=== PATIENT | female | born 1965 | race American Indian/Alaskan Native ===

== ENCOUNTER 2017-04-10 15:58 | Emergency (ER) | payer BC, MEDICAID ==
[2017-04-10 15:59] VITALS: BMI 35.5
--- NOTE | 2017-04-10 16:23 | C.PDOC ---
History Of Present Illness 51F c/o low abd pain rad to low back constant since this am. no exac or reliev fx. assoc nausea. normal stools. no fever. had hernia repair w "mesh" 3 weeks ago at [facility]. doing fine since until today. Time Seen by Provider: 04/10/17 16:22 Chief Complaint (Nursing): Abdominal Pain Past Medical History Vital Signs: Last Vital Signs Temp 98.1 F 04/10/17 22:43 Pulse 77 04/10/17 22:43 Resp 20 04/10/17 22:43 BP 117/72 04/10/17 22:43 Pulse Ox 100 04/13/17 07:15 - Medical History PMH: Anemia, Anxiety, Arthritis (KNEES), Colonic Polyps (2015), HTN, Hyperthyroidism, TIA (1997; 2002) Denies: Chronic Kidney Disease Surgical History: Endoscopy Family History: States: Other Other Family History: nc - Social History Hx Tobacco Use: Yes Hx Alcohol Use: No Hx Substance Use: No - Immunization History Hx Tetanus Toxoid Vaccination: No Hx Influenza Vaccination: No Hx Pneumococcal Vaccination: No Review Of Systems Except As Marked, All Systems Reviewed And Found Negative. Constitutional: Negative for: Fever, Chills Cardiovascular: Negative for: Chest Pain Respiratory: Negative for: Cough, Shortness of Breath Gastrointestinal: Positive for: Nausea, Abdominal Pain, Diarrhea (2 da). Negative for: Vomiting, Hematochezia Genitourinary: Negative for: Dysuria Neurological: Negative for: Weakness, Numbness Physical Exam - Physical Exam Appears: Non-toxic Skin: Warm, Dry Eye(s): bilateral: PERRL Nose: No Epistaxis Oral Mucosa: Moist Cardiovascular: Rhythm Regular Respiratory: No Decreased Breath Sounds, No Accessory Muscle Use, No Rales, No Rhonchi, No Wheezing Gastrointestinal/Abdominal: Soft, Tenderness (low mainly RLQ), No Distention, Guarding, No Rebound Extremity: No Swelling Neurological/Psych: Oriented x3, Other (no focal deficits) ED Course And Treatment - Laboratory Results Result Diagrams: 04/10/17 16:58 04/10/17 16:58 O2 Sat by Pulse Oximetry: 100 - CT Scan/US CT abd/pel Other Rad Studies (CT/US): Read By Radiologist, Radiology Report Reviewed CT/US Interpretation: EXAM: CT Abdomen and Pelvis With Intravenous Contrast. CLINICAL HISTORY: 51 years old, female; Pain; Abdominal pain; Flank; Lower; Prior surgery; Surgery date: <1 month;. Surgery type: Hernia repair; Additional info: Abdominal pain S/P hernia repair. TECHNIQUE: Axial computed tomography images of the abdomen and pelvis with intravenous contrast. This CT. exam was performed using one or more of the following dose reduction techniques: automated. exposure control, adjustment of the mA and/or kV according to patient size, and/or use of iterative. reconstruction technique. Coronal and sagittal reformatted images were created and reviewed. CONTRAST: 100 mL of visipaque 320 administered intravenously. EXAM DATE/TIME: Exam ordered 04/10/2017 5:25 PM. COMPARISON: No relevant prior studies available. FINDINGS: Lower thorax: There is thickening noted of the left major fissure near the lung base. Discoid. atelectasis or scar is seen in the right middle lobe. Hazy groundglass densities noted in the. dependent portion of the posterior basal segment of the right lower lobe. Coarse reticular densities in the posterior basal segment of the left lower lobe suggest discoid atelectasis or scar. There is a. moderate size sliding hiatal hernia. ABDOMEN: Liver: Unremarkable. No mass. Gallbladder and bile ducts: Unremarkable. No calcified stones. No ductal dilation. Pancreas: Unremarkable. No mass. No ductal dilation. Spleen: Unremarkable. No splenomegaly. Adrenals: There is a left adrenal mass measuring 2 cm with a density measurement of 22H. Kidneys and ureters: There is a mass in the lower pole of the left kidney with a maximum diameter 1. cm and a density measurement of 6H No hydronephrosis. Stomach and bowel: There are generalized colonic diverticula. No obstruction. No mucosal. thickening. Appendix: No findings to suggest acute appendicitis. PELVIS: Bladder: Unremarkable. No mass. Reproductive: Unremarkable as visualized. ABDOMEN and PELVIS: Intraperitoneal space: Ascites is noted in the hernia sac. There is intra-abdominal ascites. surrounding the liver and the spleen. Ascites is noted within the mesentery and the pelvis. The. pelvic ascites fluid density is 32 H. A fluid fluid level is noted in the left paracolic gutter with. hyperdense fluid layering dependently. No free air. Bones/joints : No acute fracture. No dislocation. Soft tissues: There is a small umbilical hernia containing fat. There is a healed midline abdominal. incision. Hazy inflammatory changes noted within the mesenteric fat anteriorly to the right of the umbilicus. There is adjacent soft tissue thickening noted of the anterior peritoneal surface. Within the. area of soft tissue thickening, there is a tiny hyperdense focus. Vasculature: Unremarkable. No abdominal aortic aneurysm. Lymph nodes: Unremarkable. No enlarged lymph nodes. IMPRESSION: 1. Hyperdense ascites could represent hemoperitoneum. 2. Hazy inflammatory change noted within the mesenteric fat to the right of the umbilicus with soft. tissue thickening noted along the adjacent anterior peritoneal surface. This could be postsurgical in. nature. A tiny hyperdense focus within the area of soft tissue thickening may be related to the mesh. used to repair the hernia. A tiny area of extravasation from the inferior epigastric artery is another. possibility. 3. Generalized colonic diverticula. 4. Moderate size sliding hiatal hernia. 5. Bibasal discoid atelectasis or scar. 6. Left renal cyst. 7. Left adrenal mass. Recommend follow-up CT or MR in 12 months. Alternatively, if there is a. history of malignancy, consider further evaluation with PET, unenhanced CT or MR. Medical Decision Making Medical Decision Making: ecg- nsr 77, nonspec t wave abn, appears similar to prior 11/17/15 1720 Hb 6.9. Bedside US shows abd free fluid 1814 paged surgery at [facility] for transfer [address] Stewart 1847 Dr Aguilera called back- rec transfer to [facility] 1929 pt resting comfortably, no distress, VSS. updated on plan 1946 call back from [facility] surgery resident Dr Baldwin. will disc w attending and call back [address] Sánchez at [facility] who accepts pt for transfer The surgical service at [facility] was paged multiple times without response from 1814 until 1946. Disposition - Disposition Disposition: Trans to Other Acute Care Hosp Disposition Time: 23:05 Condition: STABLE - Clinical Impression Clinical Impression: Hemoperitoneum
[2017-04-10] MEDS ORDERED: Sodium Chloride 0.9% 1,000 ML IV ONE (16:37)
[2017-04-10] MEDS ORDERED: Morphine 4 MG/ML VIAL ONE ×2 (16:57→17:46)
[2017-04-10] MEDS ORDERED: Sodium Chloride 0.9% 1,000 ML ONE (16:57)
[2017-04-10 17:10] LABS: BASO # 0.1 K/uL (0.0-0.2); BASO % 0.8 % (0.0-2.0); EOS # 0.2 K/uL (0.0-0.7); EOS % 2.1 % (0.0-4.0); HEMOGLOBIN 6.9 g/dL (11.0-16.0); MEAN CELL VOLUME 70.1 fL (81.0-99.0); MEAN CORPUSCULAR HEMOGLOBIN 21.5 pg (27.0-31.0); MEAN CORPUSCULAR HGB CONC 30.6 g/dL (33.0-37.0); MEAN PLATELET VOLUME 6.6 fL (7.2-11.7); MONO # 0.3 K/uL (0.0-0.8); NEUT # 6.9 K/uL (1.8-7.0); NEUT % 81.1 % (50.0-75.0); RBC 3.22 Mil/uL (3.80-5.20); RED CELL DISTRIBUTION WIDTH 19.1 % (11.5-14.5); WHITE BLOOD COUNT 8.6 K/uL (4.8-10.8)
[2017-04-10 17:11] LABS: ALBUMIN 3.6 g/dL (3.5-5.0)
[2017-04-10 17:14] LABS: ALB/GLOB RATIO 1.3 (1.0-2.1)
[2017-04-10 17:15] LABS: CALCIUM 8.2 mg/dl (8.6-10.4)
[2017-04-10] MEDS ORDERED: Iodixanol 320 MG/ML 100 ML BOTTLE IV ONE (17:35)
[2017-04-10] MEDS ORDERED: DiphenhydrAMINE 50 mg/ml Inj IVP STA (17:40)
[2017-04-10] MEDS ORDERED: DiphenhydrAMINE 50 mg/ml Inj ONE (17:45)
[2017-04-10 17:59] LABS: INR 1.1; PROTHROMBIN TIME 12.5 SECONDS (9.7-12.2)
[2017-04-10 18:22] VITALS: O2SAT 100
--- NOTE | 2017-04-10 18:55 | CT ---
EXAM: CT Abdomen and Pelvis With Intravenous Contrast CLINICAL HISTORY: 51 years old, female; Pain; Abdominal pain; Flank; Lower; Prior surgery; Surgery date: <1 month; Surgery type: Hernia repair; Additional info: Abdominal pain S/P hernia repair TECHNIQUE: Axial computed tomography images of the abdomen and pelvis with intravenous contrast. This CT exam was performed using one or more of the following dose reduction techniques: automated exposure control, adjustment of the mA and/or kV according to patient size, and/or use of iterative reconstruction technique. Coronal and sagittal reformatted images were created and reviewed. CONTRAST: 100 mL of visipaque 320 administered intravenously. EXAM DATE/TIME: Exam ordered 04/10/2017 5:25 PM COMPARISON: No relevant prior studies available. FINDINGS: Lower thorax: There is thickening noted of the left major fissure near the lung base. Discoid atelectasis or scar is seen in the right middle lobe. Hazy groundglass densities noted in the dependent portion of the posterior basal segment of the right lower lobe. Coarse reticular densities in the posterior basal segment of the left lower lobe suggest discoid atelectasis or scar. There is a moderate size sliding hiatal hernia. ABDOMEN: Liver: Unremarkable. No mass. Gallbladder and bile ducts: Unremarkable. No calcified stones. No ductal dilation. Pancreas: Unremarkable. No mass. No ductal dilation. Spleen: Unremarkable. No splenomegaly. Adrenals: There is a left adrenal mass measuring 2 cm with a density measurement of 22H. Kidneys and ureters: There is a mass in the lower pole of the left kidney with a maximum diameter 1 cm and a density measurement of 6H No hydronephrosis. Stomach and bowel: There are generalized colonic diverticula. No obstruction. No mucosal thickening. Appendix: No findings to suggest acute appendicitis. PELVIS: Bladder: Unremarkable. No mass. Reproductive: Unremarkable as visualized. ABDOMEN and PELVIS: Intraperitoneal space: Ascites is noted in the hernia sac. There is intra-abdominal ascites surrounding the liver and the spleen. Ascites is noted within the mesentery and the pelvis. The pelvic ascites fluid density is 32 H. A fluid fluid level is noted in the left paracolic gutter with hyperdense fluid layering dependently. No free air. Bones/joints: No acute fracture. No dislocation. Soft tissues: There is a small umbilical hernia containing fat. There is a healed midline abdominal incision. Hazy inflammatory changes noted within the mesenteric fat anteriorly to the right of the umbilicus. There is adjacent soft tissue thickening noted of the anterior peritoneal surface. Within the area of soft tissue thickening, there is a tiny hyperdense focus Vasculature: Unremarkable. No abdominal aortic aneurysm. Lymph nodes: Unremarkable. No enlarged lymph nodes. IMPRESSION: 1. Hyperdense ascites could represent hemoperitoneum. 2. Hazy inflammatory change noted within the mesenteric fat to the right of the umbilicus with soft tissue thickening noted along the adjacent anterior peritoneal surface. This could be postsurgical in nature. A tiny hyperdense focus within the area of soft tissue thickening may be related to the mesh used to repair the hernia. A tiny area of extravasation from the inferior epigastric artery is another possibility. 3. Generalized colonic diverticula. 4. Moderate size sliding hiatal hernia. 5. Bibasal discoid atelectasis or scar. 6. Left renal cyst 7. Left adrenal mass. Recommend follow-up CT or MR in 12 months. Alternatively, if there is a history of malignancy, consider further evaluation with PET, unenhanced CT or MR.
[2017-04-10] MEDS ORDERED: Sodium Chloride 0.9% 1,000 ML IV SCH (20:30)
[2017-04-10 22:15] LABS: SQUAMOUS EPITHIAL 9 /hpf (0-5); URINE BACTERIA RARE (<OCC); URINE BILIRUBIN NEGATIVE (NEGATIVE); URINE BLOOD NEGATIVE (NEGATIVE); URINE CLARITY Clear (Clear); URINE COLOR Yellow (YELLOW); URINE GLUCOSE (UA) NORMAL (Normal); URINE LEUKOCYTE ESTERASE NEG Leu/uL (Negative); URINE NITRATE NEGATIVE (NEGATIVE); URINE PROTEIN 1+ mg/dL (NEGATIVE); URINE UROBILINOGEN NORMAL mg/dL (0.2-1.0)
[2017-04-10 22:16] LABS: HCG,QUALITATIVE URINE NEGATIVE (NEGATIVE)
[2017-04-10 22:44] VITALS: BP 117/72; PULSE 77; RESP 20; TEMP 98.1
--- NOTE | 2017-04-11 21:28 | CARD ---
APPROVED REPORT EKG Measurement Heart [id number] <Conclusion> Normal sinus rhythm T wave abnormality, consider lateral ischemia Abnormal ECG
== END 2017-04-10 23:05 | disposition short-term general hospital (02) ==
LOC: C.ER 15:58
DX: K66.1 Hemoperitoneum (principal)
CPT/HCPCS: 36430; 74177; 80053; 81001; 83690; 84703; 85025; 85610; 85730; 86850; 86900; 86920; 93005; 96361; 96374; 96375; 96376; 99285; J1200; J2270; J2405; J2930; J7040; P9051; Q9967

== ENCOUNTER 2017-11-29 08:11 | Day surgery (SDC) | payer MEDICAID ==
[2017-11-29 09:21] VITALS: BMI 38.0
[2017-11-29] MEDS ORDERED: Propofol 10 mg/ml Inj (20 ML) ONE (11:15)
[2017-11-29] MEDS ORDERED: Lidocaine Hydrochloride 5 ML INJ ONE (11:15)
[2017-11-29] MEDS ORDERED: Lactated Ringer's 1,000 ML IV ONE ×2 (11:20)
[2017-11-29 11:31] VITALS: O2SAT 100
[2017-11-29 13:32] VITALS: BP 166/88; PULSE 72; RESP 18
[2017-11-29 13:35] VITALS: TEMP 97
== END 2017-11-29 13:25 | disposition home or self-care (01) ==
LOC: C.ENDO 08:11
PROVIDERS: ATTEND Internal Medicine Gastroenterology
DX: K25.9 Gastric ulcer, unspecified as acute or chronic, without hemorrhage or perforation (principal); K92.1 Melena; K29.70 Gastritis, unspecified, without bleeding; I10 Essential (primary) hypertension
CPT/HCPCS: 43239; 88305; J2704; J7120

== ENCOUNTER 2018-01-14 07:30 | Inpatient (IN) | payer MEDICAID ==
[2018-01-03 12:56] VITALS: BMI 38.7
[2018-01-21] MEDS ORDERED: Bupivacaine HCl 0.25% PF (30 ml) Inj ONE ×2 (07:12→07:42)
[2018-01-21] MEDS ORDERED: Lidocaine/Epinephrine 1% 1:100000 10 ML IJ ONE (07:12)
[2018-01-21] MEDS ORDERED: ceFAZolin 1 gm in NS 0 GM/0 ML BAG IVPB ONE (07:13)
[2018-01-21] MEDS ORDERED: Clindamycin 600mg/50ml NS 600 MG/50 ML BAG IVPB ONE (07:25)
[2018-01-21] MEDS ORDERED: Propofol 10 mg/ml Inj (20 ML) ONE (07:40)
[2018-01-21] MEDS ORDERED: Midazolam 2 MG/2 ML VIAL ONE (07:40)
[2018-01-21] MEDS ORDERED: Succinylcholine Chloride 20 mg/ml Syr (5 ml) IV ONE (07:41)
[2018-01-21] MEDS ORDERED: Lidocaine Hydrochloride 5 ML INJ ONE (07:41)
[2018-01-21] MEDS ORDERED: Sodium Chloride 0.9% 20 ML IV ONE (07:42)
[2018-01-21] MEDS ORDERED: Rocuronium 10 mg/ml (5 ml) ONE (07:43)
[2018-01-21] MEDS ORDERED: ePHEDrine 50 mg/ml Inj ONE (08:16)
[2018-01-21] MEDS ORDERED: Neostigmine Methylsulfate 3mg/3ml Syringe IV ONE (10:05)
[2018-01-21] MEDS: Bupivacaine HCl 0.25% PF (30 ml) Inj ONE ×2 (10:24→10:25)
--- NOTE | 2018-01-21 13:05 | RAD ---
Chest x-ray single frontal view History: NG tube placement. Comparison: 01/03/2018 Findings: NG tube extending into the stomach. Small left pleural effusion with adjacent left basilar consolidative changes. Moderate venous congestion. Top normal heart size. Degenerative changes in the spine and shoulders. Deformity of the right proximal humerus. Impression: NG tube extending into the stomach. Small left pleural effusion with adjacent left basilar consolidative changes. Moderate venous congestion. Top normal heart size. Degenerative changes in the spine and shoulders. Deformity of the right proximal humerus.
--- NOTE | 2018-01-21 13:17 | PCM.SURG1 ---
Surgeon's Initial Post Op Note - Surgeon's Notes Surgeon: Dr. Garcia, Dr. Hicks Dust Handler: HAYLEE Ahmadi; Nicolasa Ferguson, PGY2 Type of Anesthesia: General Endo Pre-Operative Diagnosis: hiatal hernia, GERD Operative Findings: extensive intraperitoneal adhesions, hiatal hernia, see full operative report Post-Operative Diagnosis: same Operation Performed: Robotic assisted laparoscopic extensive lysis of adhesions , hiatal hernia repair with mesh, chana fundoplication Specimen/Specimens Removed: hernia sac Estimated Blood Loss: EBL {In ML}: 150 Date of Surgery/Procedure: 01/21/18 Time of Surgery/Procedure: 08:00
[2018-01-21] MEDS: HYDROmorphone 0.5 mg/0.5 ml ISec IVP PRN ×3 (13:59→14:36)
[2018-01-21] MEDS: metroNIDAZOLE IV 500 mg/100 ml 500 MG/100 ML BAG IVPB SCH ×2 (14:05→22:20)
[2018-01-21] MEDS: Ciprofloxacin 400mg/200ml D5W 400 MG/200 ML BAG IVPB SCH (14:36)
--- NOTE | 2018-01-21 19:22 | CP.PCM.HP ---
Past Patient History - Past Medical History & Family History Past Medical History?: Yes - Past Social History Smoking Status: Light Smoker < 10 Cigarettes Daily - CARDIAC Hx Cardiac Disorders: Yes Hx Hypertension: Yes - PULMONARY Hx Respiratory Disorders: Yes Hx Chronic Obstructive Pulmonary Disease (COPD): Yes Hx Sleep Apnea: Yes (NO CPAP OF NOW) Other/Comment: IN PROCESS OF EVALUATION FOR CPAP, SLEEPS THROUGH OUT DAY - NEUROLOGICAL Hx Neurological Disorder: Yes HX Cerebrovascular Accident: No Hx Dizziness: Yes (SOMETIMES) Hx Transient Ischemic Attacks (TIA): Yes (1997; 2002) - HEENT Hx HEENT Problems: Yes Hx Cataracts: Yes Other/Comment: thyroid nodule - ENDOCRINE/METABOLIC Hx Endocrine Disorders: Yes Hx Hyperthyroidism: Yes Hx Hypothyroidism: Yes (S/P THYROIDECTOMY) Other/Comment: HX: THYROID CANCER - HEMATOLOGICAL/ONCOLOGICAL Hx Blood Disorders: Yes Hx Anemia: Yes Hx Blood Transfusions: Yes Hx Blood Transfusion Reaction: No Hx Cancer: Yes (THYROID) - MUSCULOSKELETAL/RHEUMATOLOGICAL Hx Musculoskeletal Disorders: Yes Hx Arthritis: Yes (KNEES) Hx Osteoarthritis: Yes Other/Comment: HX: UMBILICAL HERNIA - GASTROINTESTINAL Hx Gastrointestinal Disorders: Yes Hx Gastroesophageal Reflux: Yes Hx Hemorrhoids: Yes Hx Ulcer: Yes - GENITOURINARY/GYNECOLOGICAL Hx Genitourinary Disorders: Yes Other/Comment: HX: UTERINE FIBROID - PSYCHIATRIC Hx Psychophysiologic Disorder: Yes Hx Anxiety: Yes Hx Panic Symptoms: Yes (PALPITATIONS, SWEATY, SOB, DIZZINESS) - SURGICAL HISTORY Hx Surgeries: Yes Hx Section: Yes Hx Herniorrhaphy: Yes (umbilical hernia ,MESH) Hx Hysterectomy: Yes (8 YRS) Hx Thyroidectomy: Yes Hx Tubal Ligation: Yes - ANESTHESIA Hx Anesthesia: Yes Hx Anesthesia Reactions: No Hx Malignant Hyperthermia: No Meds Allergies/Adverse Reactions: Allergies Allergy/AdvReac Type Severity Reaction Status Date / Time Penicillins Allergy Intermediate RASH Verified 01/03/18 12:09 Physical Exam - Constitutional Appears: Well - Head Exam Head Exam: ATRAUMATIC, NORMAL INSPECTION, NORMOCEPHALIC - Eye Exam Eye Exam: EOMI, Normal appearance, PERRL Pupil Exam: NORMAL ACCOMODATION, PERRL - ENT Exam ENT Exam: Mucous Membranes Moist, Normal Exam - Neck Exam Neck exam: Positive for: Normal Inspection - Respiratory Exam Respiratory Exam: Decreased Breath Sounds - Cardiovascular Exam Cardiovascular Exam: REGULAR RHYTHM, +S1, +S2 - GI/Abdominal Exam GI & Abdominal Exam: Diminished Bowel Sounds, Soft - Rectal Exam Rectal Exam: Deferred Results - Vital Signs Recent Vital Signs: Last Vital Signs Temp 98 F 01/21/18 17:00 Pulse 80 01/21/18 17:00 Resp 21 01/21/18 17:00 BP 147/98 H 01/21/18 17:00 Pulse Ox 99 01/21/18 17:00 - Labs Labs: Laboratory Results - last 24 hr 01/21/18 01/21/18 06:54 12:56 POC Glucose (mg/dL) 170 H Blood Type O POSITIVE Antibody Screen Negative
[2018-01-21] MEDS: Lactated Ringer's 1,000 ML IV SCH (21:17)
[2018-01-22] MEDS: Ciprofloxacin 400mg/200ml D5W 400 MG/200 ML BAG IVPB SCH ×2 (01:26→13:43)
[2018-01-22] MEDS: Lactated Ringer's 1,000 ML IV SCH ×2 (01:29→21:11)
--- NOTE | 2018-01-22 02:06 | OP ---
PROCEDURE DATE: 01/21/2018 PREOPERATIVE DIAGNOSES: 1. Paraesophageal hernia. 2. Upper gastrointestinal bleed with a hannah ulcer. 3. Status post previous hysterectomy and status post laparoscopic incisional hernia repair. 4. Possible extensive postoperative adhesions. POSTOPERATIVE DIAGNOSES: 1. Paraesophageal hernia. 2. Upper gastrointestinal bleed with a hannah ulcer. 3. Status post previous hysterectomy and status post laparoscopic incisional hernia repair. 4. Possible extensive postoperative adhesions. PROCEDURES: 1. Laparoscopic extensive lysis of adhesions. 2. Robotic hiatal hernia repair with the mesh. 3. Robotic diaphragmatic repair. 4. Robotic gastropexy. SURGEON: José Antonio Garcia MD. CO-SURGEON: Martín Hicks MD TRACK GRINDER: FREDI Frederick; and Nicolasa Ferguson, PGY-2 resident. ANESTHESIA: General endotracheal tube anesthesia. ESTIMATED BLOOD LOSS: Around 150 mL. DRAINS: None. PATHOLOGY: Hernial sac and was sent for the pathology. COMPLICATIONS: None. INTRAOPERATIVE FINDINGS: The patient had paraesophageal hernia with a thickened fundus of the stomach. DESCRIPTION OF PROCEDURE: On intraoperative steps, this is a 52-year-old female who was diagnosed with hiatal hernia, and the patient had paraesophageal hernia with hannah ulcer with upper GI bleed, and the patient was consented for the robotic hiatal hernia repair with a mesh with possible extensive lysis of adhesion, possible open. The patient was brought to the OR, placed supine on the operating table. After induction of anesthesia, the abdomen was prepped and draped in the usual sterile fashion. The Llamas catheter and NG tube was placed and abdomen was prepped and draped in the usual sterile fashion. The right upper quadrant incision was made. Peritoneal cavity was entered. Pneumo was created. Extensive lysis of adhesion was done laparoscopically and upper part of the abdomen was freed from the small bowel as well as omentum and colonic adhesion. After that, the 5.8 mm robotic camera was placed in the upper abdomen, and robot was brought in, camera arm as well as arm 1 and arm 2 was docked. Through the most lateral right side port, the robotic arm was used to retract liver up and the stomach was reduced back into the peritoneal cavity and intraperitoneal adhesion was lysed. This part of the operation was done by Dr. Kurt Resendiz and the esophagus was identified and the anterior as well as the posterior vagus nerve was identified. The dissection was carried down into the thorax to mobilize the esophagus and right and left sia of the diaphragm was also dissected. The first posterior repair was done with a 2-0 PDS continuous suture and the 56-Malay bougie was placed, and then the Strattice matrix was placed and the mesh was sutured with continuous suture after proper hiatal hernia repair as well as diaphragmatic repair. Now the short gastric vessel was mobilized and fundoplication was done. After completion of the fundoplication, the bougie was taken off and bougie was placed back in to see if any constriction at the fundoplication site, and there was no constriction and bougie was moving without any resistance. After fundoplication, the gastropexy was done. The fundus of the stomach was sutured to the diaphragm with multiple sutures, and after gastropexy, the suction irrigation of the left upper quadrant as well as right upper quadrant was done. The hemostasis was achieved and after proper hemostasis and after proper suction irrigation, all the port was taken out under vision. The Pneumo was deflated. All the port site was closed in 2 layers, subcu with a 2-0 Vicryl, skin with a 4-0 Monocryl, and dry sterile dressing was applied. The patient tolerated the procedure well. Count of instrument and gauze was correct. There were no apparent complications. José Antonio Garcia MD MTDHermilo
[2018-01-22] MEDS: Levothyroxine 100 mcg (0.1 mg) Inj IVP SCH (06:22)
[2018-01-22] MEDS: metroNIDAZOLE IV 500 mg/100 ml 500 MG/100 ML BAG IVPB SCH ×2 (06:27→13:48)
[2018-01-22 07:49] LABS: BASO % 0.4 % (0.0-2.0); EOS % 0.1 % (0.0-4.0); HEMOGLOBIN 8.9 g/dL (11.0-16.0); LYMPH # 0.4 K/uL (1.0-4.3); LYMPH % 5.5 % (20.0-40.0); MEAN CORPUSCULAR HEMOGLOBIN 22.5 pg (27.0-31.0); MEAN CORPUSCULAR HGB CONC 31.6 g/dL (33.0-37.0); MEAN PLATELET VOLUME 8.3 fL (7.2-11.7); MONO # 0.4 K/uL (0.0-0.8); MONO % 5.3 % (0.0-10.0); NEUT # 7.1 K/uL (1.8-7.0); NEUT % 88.7 % (50.0-75.0); RBC 3.95 Mil/uL (3.80-5.20); RED CELL DISTRIBUTION WIDTH 24.6 % (11.5-14.5)
[2018-01-22 07:55] LABS: PLATELET COUNT 195 K/uL (130-400)
[2018-01-22 08:12] LABS: ALB/GLOB RATIO 1.2 (1.0-2.1); ALBUMIN 3.5 g/dL (3.5-5.0); ALT/SGPT 976 U/L (9-52); BLOOD UREA NITROGEN 20 mg/dL (7-17); CALCIUM 7.7 mg/dl (8.6-10.4); GFR AFRICAN-AMERICAN > 60; GFR NON-AFRICAN AMERICAN 58
[2018-01-22] MEDS: Morphine 4 MG/ML VIAL IVP PRN ×3 (08:38→18:36)
[2018-01-22 08:44] LABS: AST/SGOT 902 U/L (14-36)
[2018-01-22 10:29] LABS: ANISOCYTOSIS MODERATE; BANDS 5 % (0-2); HYPOCHROMIC MODERATE; LYMPHOCYTE 6 % (20-40); MONOCYTE 5 % (0-10); NEUTROPHIL 84 % (50-75); PLATELET ESTIMATE NORMAL (NORMAL); TOTAL CELLS COUNTED 100
[2018-01-22] MEDS: Enalaprilat 2.5 MG/2 ML IV SCH ×2 (12:47→17:39)
[2018-01-22] MEDS: Albuterol-Ipratrop 3 mg / 0.5 (3 ml) UD INH SCH ×2 (13:27→20:43)
--- NOTE | 2018-01-22 17:07 | CP.PCM.HP ---
Past Patient History - Past Medical History & Family History Past Medical History?: Yes - Past Social History Smoking Status: Light Smoker < 10 Cigarettes Daily - CARDIAC Hx Cardiac Disorders: Yes Hx Hypertension: Yes - PULMONARY Hx Respiratory Disorders: Yes Hx Chronic Obstructive Pulmonary Disease (COPD): Yes Hx Sleep Apnea: Yes (NO CPAP OF NOW) Other/Comment: IN PROCESS OF EVALUATION FOR CPAP, SLEEPS THROUGH OUT DAY - NEUROLOGICAL Hx Neurological Disorder: Yes HX Cerebrovascular Accident: No Hx Dizziness: Yes (SOMETIMES) Hx Transient Ischemic Attacks (TIA): Yes (1997; 2002) - HEENT Hx HEENT Problems: Yes Hx Cataracts: Yes Other/Comment: thyroid nodule - RENAL Hx Chronic Kidney Disease: No - ENDOCRINE/METABOLIC Hx Endocrine Disorders: Yes Hx Hyperthyroidism: Yes Hx Hypothyroidism: Yes (S/P THYROIDECTOMY) Other/Comment: HX: THYROID CANCER - HEMATOLOGICAL/ONCOLOGICAL Hx Blood Disorders: Yes Hx Anemia: Yes Hx Blood Transfusions: Yes Hx Blood Transfusion Reaction: No Hx Cancer: Yes (THYROID) - INTEGUMENTARY Hx Dermatological Problems: No - MUSCULOSKELETAL/RHEUMATOLOGICAL Hx Musculoskeletal Disorders: No Hx Falls: No - GASTROINTESTINAL Hx Gastrointestinal Disorders: Yes Hx Gastroesophageal Reflux: Yes Hx Hemorrhoids: Yes Hx Ulcer: Yes - GENITOURINARY/GYNECOLOGICAL Hx Genitourinary Disorders: Yes Other/Comment: HX: UTERINE FIBROID - PSYCHIATRIC Hx Psychophysiologic Disorder: No Hx Substance Use: No - SURGICAL HISTORY Hx Surgeries: Yes Hx Section: Yes Hx Herniorrhaphy: Yes (umbilical hernia ,MESH) Hx Hysterectomy: Yes (8 YRS) Hx Thyroidectomy: Yes Hx Tubal Ligation: Yes - ANESTHESIA Hx Anesthesia: Yes Hx Anesthesia Reactions: No Hx Malignant Hyperthermia: No Has any member of the family had a problem w/ anesthesia?: No Meds Allergies/Adverse Reactions: Allergies Allergy/AdvReac Type Severity Reaction Status Date / Time Penicillins Allergy Intermediate RASH Verified 01/03/18 12:09 Physical Exam - Constitutional Appears: Well - Head Exam Head Exam: ATRAUMATIC, NORMAL INSPECTION, NORMOCEPHALIC - Eye Exam Eye Exam: EOMI, Normal appearance, PERRL Pupil Exam: NORMAL ACCOMODATION, PERRL - ENT Exam ENT Exam: Mucous Membranes Moist, Normal Exam - Neck Exam Neck exam: Positive for: Normal Inspection - Respiratory Exam Respiratory Exam: Decreased Breath Sounds - Cardiovascular Exam Cardiovascular Exam: REGULAR RHYTHM, +S1, +S2 - GI/Abdominal Exam GI & Abdominal Exam: Diminished Bowel Sounds, Soft - Rectal Exam Rectal Exam: Deferred Results - Vital Signs Recent Vital Signs: Last Vital Signs Temp 98.1 F 01/22/18 15:00 Pulse 95 H 01/22/18 15:00 Resp 18 01/22/18 15:00 BP 118/80 01/22/18 15:00 Pulse Ox 95 01/22/18 15:00 - Labs Result Diagrams: 01/22/18 07:44 01/22/18 07:44 Labs: Laboratory Results - last 24 hr 01/21/18 01/21/18 01/22/18 16:42 22:16 06:18 WBC RBC Hgb Hct MCV MCH MCHC RDW Plt Count MPV Neut % (Auto) Lymph % (Auto) [place] % (Auto) Eos % (Auto) Baso % (Auto) Neut # (Auto) Lymph # (Auto) [place] # (Auto) Eos # (Auto) Baso # (Auto) Neutrophils % (Manual) Band Neutrophils % Lymphocytes % (Manual) Monocytes % (Manual) Platelet Estimate Hypochromasia (manual) Basophilic Stippling Anisocytosis (manual) Sodium Potassium Chloride Carbon Dioxide Anion Gap BUN Creatinine Est GFR ( Amer) Est GFR (Non-Af Amer) POC Glucose (mg/dL) 150 H 115 H 101 Random Glucose Calcium Phosphorus Magnesium Total Bilirubin AST ALT Alkaline Phosphatase Total Protein Albumin Globulin Albumin/Globulin Ratio 01/22/18 01/22/18 07:44 07:44 WBC 8.0 RBC 3.95 Hgb 8.9 L Hct 28.0 L MCV 71.0 L MCH 22.5 L MCHC 31.6 L RDW 24.6 H Plt Count 195 D MPV 8.3 Neut % (Auto) 88.7 H Lymph % (Auto) 5.5 L [place] % (Auto) 5.3 Eos % (Auto) 0.1 Baso % (Auto) 0.4 Neut # (Auto) 7.1 H Lymph # (Auto) 0.4 L [place] # (Auto) 0.4 Eos # (Auto) 0.0 Baso # (Auto) 0.0 Neutrophils % (Manual) 84 H Band Neutrophils % 5 H Lymphocytes % (Manual) 6 L Monocytes % (Manual) 5 Platelet Estimate Normal Hypochromasia (manual) Moderate Basophilic Stippling Slight Anisocytosis (manual) Moderate Sodium 140 Potassium 3.7 Chloride 99 Carbon Dioxide 31 H Anion Gap 15 BUN 20 H Creatinine 1.0 Est GFR ( Amer) > 60 Est GFR (Non-Af Amer) 58 POC Glucose (mg/dL) Random Glucose 104 Calcium 7.7 L Phosphorus 3.7 Magnesium 1.6 Total Bilirubin 0.5 AST 902 H D ALT 976 H D Alkaline Phosphatase 59 Total Protein 6.4 Albumin 3.5 Globulin 2.9 Albumin/Globulin Ratio 1.2
--- NOTE | 2018-01-22 17:08 | CP.PCM.PN ---
Subjective - Date & Time of Evaluation Date of Evaluation: 01/22/18 Time of Evaluation: 08:30 - Subjective Subjective: clinically same Objective - Vital Signs/Intake and Output Vital Signs (last 24 hours): Temp Pulse Resp BP Pulse Ox 98.1 F 95 H 18 118/80 95 01/22/18 15:00 01/22/18 15:00 01/22/18 15:00 01/22/18 15:00 01/22/18 15:00 Intake and Output: 01/22/18 01/22/18 06:59 18:59 Intake Total 975 825 Output Total 1050 100 Balance -75 725 - Medications Medications: Current Medications Albuterol/Ipratropium (Duoneb 3 Mg/0.5 Mg (3 Ml) Ud) 3 ml INH RQ6 [facility] Last Admin: 01/22/18 13:27 Dose: 3 ml Amlodipine Besylate (Norvasc) 10 mg PO DAILY [facility] Last Admin: 01/22/18 11:09 Dose: 10 mg Enalaprilat (Vasotec) 2.5 mg IV Q6H [facility] Last Admin: 01/22/18 12:47 Dose: 2.5 mg Heparin Sodium (Porcine) (Heparin) 5,000 units SC Q8 [facility] Last Admin: 01/22/18 09:35 Dose: 5,000 units Home Med (Fexofenadine Hcl [Fexofenadine Hcl]) 180 mg PO DAILY [facility] Lactated Ringer's (Lactated Ringer's) 1,000 mls @ 125 mls/hr IV .Q8H [facility] Last Admin: 01/22/18 01:29 Dose: 125 mls/hr Levothyroxine Sodium (Synthroid) 62.5 mcg IVP DAILY@0630 [facility] Last Admin: 01/22/18 06:22 Dose: 62.5 mcg Metoclopramide HCl (Reglan) 10 mg IVP Q6H [facility] Last Admin: 01/22/18 13:45 Dose: Not Given Morphine Sulfate (Morphine) 2 mg IVP Q4 PRN PRN Reason: Pain, moderate (4-7) Last Admin: 01/22/18 12:48 Dose: 2 mg Ondansetron HCl (Zofran Inj) 4 mg IVP Q6 [facility] Last Admin: 01/22/18 12:46 Dose: 4 mg - Labs Labs: 01/22/18 07:44 01/22/18 07:44 - Constitutional Appears: Well - Head Exam Head Exam: ATRAUMATIC, NORMAL INSPECTION, NORMOCEPHALIC - Eye Exam Eye Exam: EOMI, Normal appearance, PERRL Pupil Exam: NORMAL ACCOMODATION, PERRL - ENT Exam ENT Exam: Mucous Membranes Moist, Normal Exam - Neck Exam Neck Exam: Full ROM, Normal Inspection. absent: Lymphadenopathy - Respiratory Exam Respiratory Exam: Decreased Breath Sounds - Cardiovascular Exam Cardiovascular Exam: REGULAR RHYTHM, +S1, +S2 - GI/Abdominal Exam GI & Abdominal Exam: Soft, Diminished Bowel Sounds - Rectal Exam Rectal Exam: Deferred
[2018-01-23] MEDS ORDERED: Lidocaine 2% Jelly (Uro-Jet) TOP ONE (00:03)
[2018-01-23] MEDS ORDERED: DiphenhydrAMINE 50 mg/ml Inj IVP STA (00:06)
[2018-01-23] MEDS: Enalaprilat 2.5 MG/2 ML IV SCH ×4 (00:45→18:04)
[2018-01-23 00:50] VITALS: RESP 20
[2018-01-23] MEDS: Albuterol-Ipratrop 3 mg / 0.5 (3 ml) UD INH SCH ×4 (01:12→19:06)
[2018-01-23] MEDS: Morphine 4 MG/ML VIAL IVP PRN ×3 (03:11→18:00)
[2018-01-23] MEDS: Lactated Ringer's 1,000 ML IV SCH ×2 (03:14→13:34)
[2018-01-23] MEDS: Levothyroxine 100 mcg (0.1 mg) Inj IVP SCH (07:04)
[2018-01-23 07:30] LABS: BASO # 0.1 K/uL (0.0-0.2); BASO % 0.6 % (0.0-2.0); EOS % 0.4 % (0.0-4.0); HEMOGLOBIN 8.4 g/dL (11.0-16.0); LYMPH # 0.7 K/uL (1.0-4.3); MEAN CELL VOLUME 71.1 fL (81.0-99.0); MEAN CORPUSCULAR HEMOGLOBIN 22.5 pg (27.0-31.0); MEAN CORPUSCULAR HGB CONC 31.6 g/dL (33.0-37.0); MEAN PLATELET VOLUME 8.3 fL (7.2-11.7); MONO # 0.5 K/uL (0.0-0.8); MONO % 5.3 % (0.0-10.0); NEUT # 8.3 K/uL (1.8-7.0); NEUT % 86.7 % (50.0-75.0); PLATELET COUNT 181 K/uL (130-400); RBC 3.73 Mil/uL (3.80-5.20); RED CELL DISTRIBUTION WIDTH 25.1 % (11.5-14.5); WHITE BLOOD COUNT 9.6 K/uL (4.8-10.8)
[2018-01-23 07:43] LABS: BLOOD UREA NITROGEN 12 mg/dL (7-17); GFR AFRICAN-AMERICAN > 60; GFR NON-AFRICAN AMERICAN 58
[2018-01-23 07:44] LABS: ALB/GLOB RATIO 1.2 (1.0-2.1); ALBUMIN 3.5 g/dL (3.5-5.0); CALCIUM 7.8 mg/dl (8.6-10.4)
[2018-01-23 08:08] LABS: ALT/SGPT 1360 U/L (9-52); AST/SGOT 962 U/L (14-36)
[2018-01-23 08:33] LABS: BASOPHIL 1 % (0-2); PLATELET ESTIMATE NORMAL (NORMAL); TOTAL CELLS COUNTED 100
[2018-01-23 08:34] LABS: ANISOCYTOSIS SLIGHT; HYPOCHROMIC SLIGHT; LYMPHOCYTE 7 % (20-40); MONOCYTE 4 % (0-10); NEUTROPHIL 88 % (50-75); POIKILOCYTOSIS SLIGHT; POLYCHROMIC SLIGHT
[2018-01-23 08:35] LABS: MICROCYTOSIS SLIGHT
[2018-01-23 08:36] LABS: TARGET CELLS SLIGHT
[2018-01-23] MEDS ORDERED: Barium Sulfate for Susp 96% w/w 176g Bottle PR ONE (09:16)
[2018-01-23] MEDS ORDERED: Iohexol 240 200 ML ONE (09:16)
[2018-01-23 11:34] LABS: MEAN CELL VOLUME 70.7 fL (81.0-99.0); MEAN CORPUSCULAR HEMOGLOBIN 22.3 pg (27.0-31.0); MEAN CORPUSCULAR HGB CONC 31.6 g/dL (33.0-37.0); MEAN PLATELET VOLUME 8.4 fL (7.2-11.7); RBC 4.03 Mil/uL (3.80-5.20); RED CELL DISTRIBUTION WIDTH 24.9 % (11.5-14.5); WHITE BLOOD COUNT 10.7 K/uL (4.8-10.8)
--- NOTE | 2018-01-23 13:30 | RAD ---
PROCEDURE: Limited single contrast upper GI series. HISTORY: Assess swallowing status post hiatal hernia surgery. COMPARISON: None available. TECHNIQUE: Fluoroscopic evaluation of the distal esophagus and proximal stomach was performed following administration of oral contrast. FINDINGS: Fluoroscopic examination demonstrates distention of the esophagus with distal narrowing. There is distention of the distal esophagus with pooling of contrast. Contrast is seen traversing the distal esophagus into the stomach however the area appears significantly narrowed. The narrowed segment spans a length of approximately 5 cm. Findings may be due to recent postop status and edema. IMPRESSION: Severe narrowing of the distal esophagus with proximal distention. Narrowed segment spans a length of approximately 5 cm. Findings may be due to recent postop status and edema. Total fluoroscopy time was 0.9 minutes.
[2018-01-23 13:35] LABS: HEPATITIS B SURFACE AG Negative (NEGATIVE)
[2018-01-23 13:41] LABS: HEPATITIS A IGM NEGATIVE (NEGATIVE); HEPATITIS B CORE AB NEGATIVE (NEGATIVE)
[2018-01-23 15:21] LABS: HEPATITIS C ANTIBODY NEGATIVE (NEGATIVE)
--- NOTE | 2018-01-23 16:17 | CP.PCM.PN ---
Subjective - Date & Time of Evaluation Date of Evaluation: 01/23/18 Time of Evaluation: 08:30 - Subjective Subjective: clinically same Objective - Vital Signs/Intake and Output Vital Signs (last 24 hours): Temp Pulse Resp BP Pulse Ox 98.4 F 91 H 20 125/81 96 01/23/18 16:10 01/23/18 16:10 01/23/18 16:10 01/23/18 16:10 01/23/18 16:10 Intake and Output: 01/23/18 01/23/18 06:59 18:59 Intake Total 1750 Output Total 0 Balance 1750 - Medications Medications: Current Medications Albuterol/Ipratropium (Duoneb 3 Mg/0.5 Mg (3 Ml) Ud) 3 ml INH RQ6 [facility] Last Admin: 01/23/18 13:00 Dose: 3 ml Amlodipine Besylate (Norvasc) 10 mg PO DAILY [facility] Last Admin: 01/23/18 09:46 Dose: Not Given Enalaprilat (Vasotec) 2.5 mg IV Q6H [facility] Last Admin: 01/23/18 11:58 Dose: 2.5 mg Heparin Sodium (Porcine) (Heparin) 5,000 units SC Q8 [facility] Last Admin: 01/23/18 14:57 Dose: 5,000 units Lactated Ringer's (Lactated Ringer's) 1,000 mls @ 125 mls/hr IV .Q8H [facility] Last Admin: 01/23/18 13:34 Dose: 125 mls/hr Levothyroxine Sodium (Synthroid) 62.5 mcg IVP DAILY@0630 [facility] Last Admin: 01/23/18 07:04 Dose: 62.5 mcg Loratadine (Claritin) 10 mg PO DAILY [facility] Last Admin: 01/23/18 09:45 Dose: Not Given Metoclopramide HCl (Reglan) 10 mg IVP Q6H [facility] Last Admin: 01/23/18 06:13 Dose: Not Given Morphine Sulfate (Morphine) 2 mg IVP Q4 PRN PRN Reason: Pain, moderate (4-7) Last Admin: 01/23/18 12:02 Dose: 2 mg Ondansetron HCl (Zofran Inj) 4 mg IVP Q6 [facility] Last Admin: 01/23/18 06:07 Dose: 4 mg - Labs Labs: 01/23/18 11:23 01/23/18 07:16 - Constitutional Appears: Well - Head Exam Head Exam: ATRAUMATIC, NORMAL INSPECTION, NORMOCEPHALIC - Eye Exam Eye Exam: EOMI, Normal appearance, PERRL Pupil Exam: NORMAL ACCOMODATION, PERRL - ENT Exam ENT Exam: Mucous Membranes Moist, Normal Exam - Neck Exam Neck Exam: Full ROM, Normal Inspection. absent: Lymphadenopathy - Respiratory Exam Respiratory Exam: Decreased Breath Sounds - Cardiovascular Exam Cardiovascular Exam: REGULAR RHYTHM, +S1, +S2 - GI/Abdominal Exam GI & Abdominal Exam: Soft, Diminished Bowel Sounds - Rectal Exam Rectal Exam: Deferred
--- NOTE | 2018-01-23 18:22 | CP.PCM.PN ---
Subjective - Date & Time of Evaluation Date of Evaluation: 01/23/18 Time of Evaluation: 17:35 - Subjective Subjective: General surgery progress note for Dr. Kristyn Tabor, PGY-1 Pt S & E at bedside. Pt reports relief post NGT removal. Denies N & V, F & C, CP, L shoulder pain. Is voiding, tolerating CLD. Objective - Vital Signs/Intake and Output Vital Signs (last 24 hours): Temp Pulse Resp BP Pulse Ox 98.4 F 91 H 20 134/86 96 01/23/18 16:10 01/23/18 16:10 01/23/18 16:10 01/23/18 18:04 01/23/18 16:10 Intake and Output: 01/23/18 01/23/18 06:59 18:59 Intake Total 1750 1480 Output Total 0 Balance 1750 1480 - Medications Medications: Current Medications Albuterol/Ipratropium (Duoneb 3 Mg/0.5 Mg (3 Ml) Ud) 3 ml INH RQ6 [facility] Last Admin: 01/23/18 13:00 Dose: 3 ml Amlodipine Besylate (Norvasc) 10 mg PO DAILY [facility] Last Admin: 01/23/18 09:46 Dose: Not Given Enalaprilat (Vasotec) 2.5 mg IV Q6H [facility] Last Admin: 01/23/18 18:04 Dose: 2.5 mg Heparin Sodium (Porcine) (Heparin) 5,000 units SC Q8 [facility] Last Admin: 01/23/18 14:57 Dose: 5,000 units Levothyroxine Sodium (Synthroid) 62.5 mcg IVP DAILY@0630 [facility] Last Admin: 01/23/18 07:04 Dose: 62.5 mcg Loratadine (Claritin) 10 mg PO DAILY [facility] Last Admin: 01/23/18 09:45 Dose: Not Given Metoclopramide HCl (Reglan) 10 mg IVP Q6H [facility] Last Admin: 01/23/18 12:00 Dose: Not Given Morphine Sulfate (Morphine) 2 mg IVP Q4 PRN PRN Reason: Pain, moderate (4-7) Last Admin: 01/23/18 18:00 Dose: 2 mg Ondansetron HCl (Zofran Inj) 4 mg IVP Q6 [facility] Last Admin: 01/23/18 18:04 Dose: 4 mg - Labs Labs: 01/23/18 11:23 01/23/18 07:16 - Constitutional Appears: Non-toxic, No Acute Distress - Head Exam Head Exam: ATRAUMATIC, NORMAL INSPECTION, NORMOCEPHALIC - Eye Exam Eye Exam: EOMI, Normal appearance - ENT Exam ENT Exam: Mucous Membranes Moist, Normal Exam - Neck Exam Neck Exam: Full ROM, Normal Inspection - Respiratory Exam Respiratory Exam: NORMAL BREATHING PATTERN - Cardiovascular Exam Cardiovascular Exam: REGULAR RHYTHM, +S1, +S2 - GI/Abdominal Exam GI & Abdominal Exam: Soft, Tenderness (over incision sites). absent: Distended , Firm, Guarding - Extremities Exam Extremities Exam: Normal Inspection. absent: Pedal Edema - Neurological Exam Neurological Exam: Alert, Awake, CN II-XII Intact, Oriented x3 - Psychiatric Exam Psychiatric exam: Normal Affect, Normal Mood - Skin Skin Exam: Dry, Intact, Normal Color, Warm Assessment and Plan - Assessment and Plan (Free Text) Assessment: 52F POD#2 Robotic assisted laparoscopic extensive lysis of adhesions, hiatal hernia repair with mesh, chana fundoplication. UGIS ordered - findings of severe narrowing of distal esophagus w/distal narrowing, distention of distal esophagus w/pooling of contrast, contrast seen traversing the distal esophagus into stomach, area appears significantly narrowed, approximately 5cm Plan: D/c'd NGT Advanced tp CLD Cont Anti-emetic Cont pain control FU hep panel FU AM labs DW attending Sharona, PGY-1
--- NOTE | 2018-01-23 19:23 | CP.PCM.PN ---
Subjective - Date & Time of Evaluation Date of Evaluation: 01/22/18 Time of Evaluation: 07:10 - Subjective Subjective: Patient seen and examined at bedside. Patient complaining of pain in her nares where the NGT is in place but denies any nausea, vomiting, and minimal abdominal pain. Overnight patient had anxiety and chest pain and an EKG was performed with no significant changes. Patient was given ativan which resolved her symptoms. Objective - Vital Signs/Intake and Output Vital Signs (last 24 hours): Temp Pulse Resp BP Pulse Ox 98.4 F 91 H 20 134/86 96 01/23/18 16:10 01/23/18 16:10 01/23/18 16:10 01/23/18 18:04 01/23/18 16:10 Intake and Output: 01/23/18 01/24/18 18:59 06:59 Intake Total 1480 Balance 1480 - Medications Medications: Current Medications Albuterol/Ipratropium (Duoneb 3 Mg/0.5 Mg (3 Ml) Ud) 3 ml INH RQ6 [facility] Last Admin: 01/23/18 19:06 Dose: 3 ml Amlodipine Besylate (Norvasc) 10 mg PO DAILY [facility] Last Admin: 01/23/18 09:46 Dose: Not Given Enalaprilat (Vasotec) 2.5 mg IV Q6H [facility] Last Admin: 01/23/18 18:04 Dose: 2.5 mg Heparin Sodium (Porcine) (Heparin) 5,000 units SC Q8 [facility] Last Admin: 01/23/18 14:57 Dose: 5,000 units Levothyroxine Sodium (Synthroid) 62.5 mcg IVP DAILY@0630 [facility] Last Admin: 01/23/18 07:04 Dose: 62.5 mcg Loratadine (Claritin) 10 mg PO DAILY [facility] Last Admin: 01/23/18 09:45 Dose: Not Given Metoclopramide HCl (Reglan) 10 mg IVP Q6H [facility] Last Admin: 01/23/18 12:00 Dose: Not Given Morphine Sulfate (Morphine) 2 mg IVP Q4 PRN PRN Reason: Pain, moderate (4-7) Last Admin: 01/23/18 18:00 Dose: 2 mg Ondansetron HCl (Zofran Inj) 4 mg IVP Q6 [facility] Last Admin: 01/23/18 18:04 Dose: 4 mg - Labs Labs: 01/23/18 11:23 01/23/18 07:16 - Constitutional Appears: Well, Non-toxic, No Acute Distress, Older Than Stated Age - Head Exam Head Exam: ATRAUMATIC, NORMOCEPHALIC - Eye Exam Eye Exam: Normal appearance - ENT Exam ENT Exam: Mucous Membranes Moist, Normal Oropharynx - Respiratory Exam Respiratory Exam: NORMAL BREATHING PATTERN. absent: Accessory Muscle Use, Respiratory Distress - Cardiovascular Exam Cardiovascular Exam: RRR - GI/Abdominal Exam GI & Abdominal Exam: Soft, Tenderness (around the incisions). absent: Distended - Extremities Exam Extremities Exam: absent: Calf Tenderness, Pedal Edema, Tenderness - Neurological Exam Neurological Exam: Alert, Awake, Oriented x3 - Psychiatric Exam Psychiatric exam: Normal Affect, Normal Mood - Skin Skin Exam: Dry, Intact, Normal Color Assessment and Plan - Assessment and Plan (Free Text) Assessment: 52F POD#1 s/p robotic hiatal hernia repair with mesh and chana fundoplication Plan: Keep NPO, Keep NGT in place but may clamp for ambulation UGI series tomorrow around the NGT PRN pain and scheduled nausea medication to prevent any nausea and vomiting that will endanger the surgical site Will consider D/C NGT and giving diet pending UGI series study 01/23 Encourage ambulation and Incentive spirometer use Discussed with Dr. Radha Ferguson, PGY2
[2018-01-24] MEDS: Enalaprilat 2.5 MG/2 ML IV SCH ×3 (00:31→11:29)
[2018-01-24] MEDS: Albuterol-Ipratrop 3 mg / 0.5 (3 ml) UD INH SCH ×2 (02:10→07:30)
[2018-01-24 04:33] VITALS: TEMP 98.8
[2018-01-24] MEDS: Levothyroxine 100 mcg (0.1 mg) Inj IVP SCH (06:58)
[2018-01-24 07:29] LABS: BASO % 0.5 % (0.0-2.0); EOS # 0.1 K/uL (0.0-0.7); EOS % 1.2 % (0.0-4.0); HEMOGLOBIN 8.7 g/dL (11.0-16.0); LYMPH # 0.6 K/uL (1.0-4.3); LYMPH % 6.7 % (20.0-40.0); MEAN CELL VOLUME 71.2 fL (81.0-99.0); MEAN CORPUSCULAR HEMOGLOBIN 22.1 pg (27.0-31.0); MEAN CORPUSCULAR HGB CONC 31.1 g/dL (33.0-37.0); MEAN PLATELET VOLUME 7.3 fL (7.2-11.7); MONO # 0.4 K/uL (0.0-0.8); MONO % 4.7 % (0.0-10.0); NEUT # 7.4 K/uL (1.8-7.0); NEUT % 86.9 % (50.0-75.0); PLATELET COUNT 189 K/uL (130-400); RBC 3.91 Mil/uL (3.80-5.20); RED CELL DISTRIBUTION WIDTH 24.8 % (11.5-14.5); WHITE BLOOD COUNT 8.6 K/uL (4.8-10.8)
[2018-01-24 07:51] LABS: ALB/GLOB RATIO 1.1 (1.0-2.1); ALBUMIN 3.6 g/dL (3.5-5.0); ALT/SGPT 929 U/L (9-52); AST/SGOT 412 U/L (14-36); BLOOD UREA NITROGEN 10 mg/dL (7-17); CALCIUM 7.9 mg/dl (8.6-10.4); GFR AFRICAN-AMERICAN > 60; GFR NON-AFRICAN AMERICAN > 60
[2018-01-24 07:59] VITALS: PULSE 78; O2SAT 100
[2018-01-24 08:47] LABS: ANISOCYTOSIS SLIGHT; BASOPHIL 1 % (0-2); EOSINOPHIL 1 % (0-4); LYMPHOCYTE 7 % (20-40); MONOCYTE 4 % (0-10); MYELOCYTE 1 % (0-0); NEUTROPHIL 86 % (50-75); PLATELET ESTIMATE NORMAL (NORMAL); POIKILOCYTOSIS SLIGHT; TOTAL CELLS COUNTED 100
[2018-01-24 08:48] LABS: GIANT PLATELETS PRESENT; HYPOCHROMIC SLIGHT; LARGE PLATELETS PRESENT; MICROCYTOSIS SLIGHT
--- NOTE | 2018-01-24 10:00 | CP.PCM.DIS ---
Provider - Provider Date of Admission: 01/21/18 06:02 Attending physician: José Antonio Garcia MD Time Spent in preparation of Discharge (in minutes): 35 Diagnosis - Discharge Diagnosis (1) S/P Nakia fundoplication (without gastrostomy tube) procedure Status: Acute Priority: High (2) Hiatal hernia with gastroesophageal reflux Status: Chronic Priority: High (3) Hypothyroidism Status: Chronic Priority: Medium (4) Hypertension Status: Chronic Priority: Medium (5) Anxiety Status: Chronic Priority: Medium Hospital Course - Lab Results Lab Results: Most Recent Lab Values WBC 8.6 K/uL (4.8-10.8) 01/24/18 07:20 RBC 3.91 Mil/uL (3.80-5.20) 01/24/18 07:20 Hgb 8.7 g/dL (11.0-16.0) L 01/24/18 07:20 Hct 27.9 % (34.0-47.0) L 01/24/18 07:20 MCV 71.2 fL (81.0-99.0) L 01/24/18 07:20 MCH 22.1 pg (27.0-31.0) L 01/24/18 07:20 MCHC 31.1 g/dL (33.0-37.0) L 01/24/18 07:20 RDW 24.8 % (11.5-14.5) H 01/24/18 07:20 Plt Count 189 K/uL (130-400) 01/24/18 07:20 MPV 7.3 fL (7.2-11.7) 01/24/18 07:20 Neut % (Auto) 86.9 % (50.0-75.0) H 01/24/18 07:20 Lymph % (Auto) 6.7 % (20.0-40.0) L 01/24/18 07:20 [place] % (Auto) 4.7 % (0.0-10.0) 01/24/18 07:20 Eos % (Auto) 1.2 % (0.0-4.0) 01/24/18 07:20 Baso % (Auto) 0.5 % (0.0-2.0) 01/24/18 07:20 Neut # (Auto) 7.4 K/uL (1.8-7.0) H 01/24/18 07:20 Lymph # (Auto) 0.6 K/uL (1.0-4.3) L 01/24/18 07:20 [place] # (Auto) 0.4 K/uL (0.0-0.8) 01/24/18 07:20 Eos # (Auto) 0.1 K/uL (0.0-0.7) 01/24/18 07:20 Baso # (Auto) 0.0 K/uL (0.0-0.2) 01/24/18 07:20 Neutrophils % (Manual) 86 % (50-75) H 01/24/18 07:20 Band Neutrophils % 5 % (0-2) H 01/22/18 07:44 Lymphocytes % (Manual) 7 % (20-40) L 01/24/18 07:20 Monocytes % (Manual) 4 % (0-10) 01/24/18 07:20 Eosinophils % (Manual) 1 % (0-4) 01/24/18 07:20 Basophils % (Manual) 1 % (0-2) 01/24/18 07:20 Myelocytes % 1 % (0-0) H 01/24/18 07:20 Platelet Estimate Normal (NORMAL) 01/24/18 07:20 Large Platelets Present 01/24/18 07:20 Giant Platelets Present 01/24/18 07:20 Polychromasia Slight 01/23/18 07:16 Hypochromasia (manual) Slight 01/24/18 07:20 Poikilocytosis (manual Slight 01/24/18 07:20 Basophilic Stippling Slight 01/22/18 07:44 Anisocytosis (manual) Slight 01/24/18 07:20 Microcytosis (manual) Slight 01/24/18 07:20 Macrocytosis (manual) Slight 01/24/18 07:20 Target Cells Slight 01/23/18 07:16 Sodium 141 mmol/L (132-148) 01/24/18 07:20 Potassium 3.7 mmol/L (3.6-5.2) 01/24/18 07:20 Chloride 100 mmol/L (98-107) 01/24/18 07:20 Carbon Dioxide 28 mmol/L (22-30) 04/19/18 07:20 Anion Gap 17 (10-20) 01/24/18 07:20 BUN 10 mg/dL (7-17) 01/24/18 07:20 Creatinine 0.9 mg/dL (0.7-1.2) 01/24/18 07:20 Est GFR ( Amer) > 60 01/24/18 07:20 Est GFR (Non-Af Amer) > 60 01/24/18 07:20 POC Glucose (mg/dL) 101 mg/dL (65-110) 01/22/18 06:18 Random Glucose 92 mg/dL (65-105) 01/24/18 07:20 Calcium 7.9 mg/dl (8.6-10.4) L 01/24/18 07:20 Phosphorus 2.5 mg/dL (2.5-4.5) 01/23/18 07:16 Magnesium 1.8 mg/dL (1.6-2.3) 01/23/18 07:16 Total Bilirubin 0.5 mg/dL (0.2-1.3) 01/24/18 07:20 AST 412 U/L (14-36) H D 01/24/18 07:20 ALT 929 U/L (9-52) H D 01/24/18 07:20 Alkaline Phosphatase 70 U/L (38-126) 01/24/18 07:20 Total Protein 6.9 g/dL (6.3-8.3) 01/24/18 07:20 Albumin 3.6 g/dL (3.5-5.0) 01/24/18 07:20 Globulin 3.3 gm/dL (2.2-3.9) 01/24/18 07:20 Albumin/Globulin Ratio 1.1 (1.0-2.1) 01/24/18 07:20 Hepatitis A IgM Ab Negative (NEGATIVE) 01/23/18 12:49 Hep Bs Antigen Negative (NEGATIVE) 01/23/18 12:49 Hep B Core IgM Ab Negative (NEGATIVE) 01/23/18 12:49 Hepatitis C Antibody Negative (NEGATIVE) 01/23/18 12:49 Blood Type O POSITIVE 01/21/18 06:54 Antibody Screen Negative 01/21/18 06:54 - Hospital Course Hospital Course: 52F with PMH of hiatal hernia with GERD who presented to the hospital for robotic hiatal hernia repair. Patient underwent the procedure which was without complication and tolerated it well. Patient was admitted to medical-surgical floor with an NGT for recovery and monitoring. On POD#2 patient underwent an upper GI series to assess for stricture of the esophageal-gastro junction and any leaks. UGI showed a patent EG junction and NGT was discontinued. Patient was started on a liquid diet without any negative sequela and on POD#3 was discharged to home with instructions to stay on liquid diet for 2 weeks and follow up with Dr. Garcia in his office For full hospital course refer to full chart Discharge Exam - Head Exam Head Exam: ATRAUMATIC, NORMOCEPHALIC - Eye Exam Eye Exam: Normal appearance. absent: Conjunctival injection, Scleral icterus - ENT Exam ENT Exam: Mucous Membranes Moist, Normal Oropharynx - Respiratory Exam Respiratory Exam: NORMAL BREATHING PATTERN, UNREMARKABLE. absent: Accessory Muscle Use - Cardiovascular Exam Cardiovascular Exam: RRR - GI/Abdominal Exam GI & Abdominal Exam: Soft, Tenderness (epigastric mild tenderness). absent: Distended Additional comments: incisions c/d/i - Extremities Exam Extremities exam: normal capillary refill, normal inspection - Neurological Exam Neurological exam: Alert, Oriented x3 - Psychiatric Exam Psychiatric exam: Normal Affect, Normal Mood - Skin Skin Exam: Dry, Normal Color, Warm Discharge Plan - Follow Up Plan Condition: GOOD Disposition: HOME/ ROUTINE Instructions: Hernia Repair (DC), Full Liquid Diet, Managing Pain After Surgery Additional Instructions: Call to schedule an appointment with Dr. Garcia in 10-14 days. Follow up with your primary doctor Thick liquid diet only for 2 weeks Take tylenol or advil for pain medication Call Dr. Garcia's office for any fever >100.4, nausea and vomiting, difficulty swallowing, or any other concerning symptoms Bandaids can be removed Sunday, the white tape strips will fall off on their own. and you may shower after they are removed but do not soak the incisions Do not lift >10 pounds for 4-[address] Garcia clears you, if you are having difficulty with constipation take stool softeners to prevent straining. Referrals: José Antonio Garcia MD [Staff Provider] - 01/31/18
[2018-01-24] MEDS: Morphine 4 MG/ML VIAL IVP PRN (10:04)
[2018-01-24 11:31] VITALS: BP 152/84
--- NOTE | 2018-01-24 11:56 | CARD ---
APPROVED REPORT EKG Measurement Heart [id number] 150P52 [id number] <Conclusion> Normal sinus rhythm Nonspecific T wave abnormality Abnormal ECG
--- NOTE | 2018-01-24 12:52 | CARD ---
APPROVED REPORT EKG Measurement Heart [id number] 142P50 [id number] <Conclusion> Normal sinus rhythm Nonspecific T wave abnormality Abnormal ECG
== END 2018-01-24 12:20 | disposition home or self-care (01) | DRG 585 ==
LOC: C.9S 01-21 06:02 → C.6T 01-21 20:14
PROVIDERS: ADMIT Surgery Surgical Critical Care; ATTEND Surgery Surgical Critical Care
PROC: 0DNW4ZZ Release Peritoneum, Percutaneous Endoscopic Approach (ICD-10-PCS; 2018-01-21)
PROC: 0BQT4ZZ Repair Diaphragm, Percutaneous Endoscopic Approach (ICD-10-PCS; 2018-01-21)
PROC: 0DV44ZZ Restriction of Esophagogastric Junction, Percutaneous Endoscopic Approach (ICD-10-PCS; 2018-01-21)
PROC: 0DQ64ZZ Repair Stomach, Percutaneous Endoscopic Approach (ICD-10-PCS; 2018-01-21)
PROC: 8E0W4CZ Robotic Assisted Procedure of Trunk Region, Percutaneous Endoscopic Approach (ICD-10-PCS; 2018-01-21)
PROC: 0BUT4JZ Supplement Diaphragm with Synthetic Substitute, Percutaneous Endoscopic Approach (ICD-10-PCS; principal; 2018-01-21 07:30)
DX: K44.9 Diaphragmatic hernia without obstruction or gangrene (principal); K25.4 Chronic or unspecified gastric ulcer with hemorrhage; J44.9 Chronic obstructive pulmonary disease, unspecified; K21.9 Gastro-esophageal reflux disease without esophagitis; E04.1 Nontoxic single thyroid nodule; F41.9 Anxiety disorder, unspecified; G47.30 Sleep apnea, unspecified; K66.0 Peritoneal adhesions (postprocedural) (postinfection); I10 Essential (primary) hypertension; Z86.73 Personal history of transient ischemic attack (TIA), and cerebral infarction without residual deficits; Z85.850 Personal history of malignant neoplasm of thyroid

== ENCOUNTER 2018-12-10 08:20 | Outpatient (CLI) | payer MEDICAID | END 2018-12-10 08:21 | disposition home or self-care (01) | LOC: C.USIC 08:21 | DX: R10.9 Unspecified abdominal pain (principal) ==

== ENCOUNTER 2019-01-09 05:20 | Emergency (ER) | payer MEDICAID ==
[2019-01-09 05:21] VITALS: BMI 30.4
[2019-01-09 05:43] VITALS: TEMP 97.9
[2019-01-09] MEDS ORDERED: Iodixanol 320 MG/ML 100 ML BOTTLE IV ONE ×2 (05:59→06:09)
[2019-01-09 06:02] LABS: BASO # 0.1 K/uL (0.0-0.2); BASO % 0.9 % (0.0-2.0); EOS # 0.1 K/uL (0.0-0.7); EOS % 1.9 % (0.0-4.0); HEMOGLOBIN 13.7 g/dL (11.0-16.0); LYMPH % 13.3 % (20.0-40.0); MEAN CELL VOLUME 91.3 fL (81.0-99.0); MEAN CORPUSCULAR HEMOGLOBIN 30.9 pg (27.0-31.0); MEAN CORPUSCULAR HGB CONC 33.9 g/dL (33.0-37.0); MEAN PLATELET VOLUME 7.7 fL (7.2-11.7); MONO # 0.3 K/uL (0.0-0.8); MONO % 4.4 % (0.0-10.0); NEUT # 5.9 K/uL (1.8-7.0); NEUT % 79.5 % (50.0-75.0); RBC 4.45 Mil/uL (3.80-5.20); RED CELL DISTRIBUTION WIDTH 15.9 % (11.5-14.5); WHITE BLOOD COUNT 7.5 K/uL (4.8-10.8)
[2019-01-09 06:20] LABS: ALB/GLOB RATIO 1.6 (1.0-2.1); ALBUMIN 4.5 g/dL (3.5-5.0); ALT/SGPT 8 U/L (9-52); AST/SGOT 19 U/L (14-36); BLOOD UREA NITROGEN 22 mg/dL (7-17); CALCIUM 9.2 mg/dl (8.6-10.4); GFR NON-AFRICAN AMERICAN > 60; LIPASE 26 U/L (23-300)
--- NOTE | 2019-01-09 07:07 | C.PDOC ---
History Of Present Illness 53-year-old female presents to the ED for evaluation of abdominal pain that has been ongoing for 5-6 months. Patient was recently diagnosed with diverticulitis and colitis earlier this year. Patient reports pain is mostly to the right side of her abdomen. Patient states she followed up with her PMD, Dr. Card, who ordered an outpatient CT scan for her. She is scheduled for the outpatient scan on 01/13. She presents to the ED for immediate evaluation because her pain has worsened. She denies fever, chills, nausea, vomiting. Time Seen by Provider: 01/09/19 05:25 Chief Complaint (Nursing): Abdominal Pain History Per: Patient History/Exam Limitations: no limitations Onset/Duration Of Symptoms: Other (5-6 months ) Current Symptoms Are (Timing): Still Present Location Of Pain/Discomfort: Other (right-sided) Past Medical History Reviewed: Historical Data, Nursing Documentation, Vital Signs Vital Signs: Last Vital Signs Temp 97.9 F 01/09/19 05:41 Pulse 80 01/09/19 05:41 Resp 14 01/09/19 05:41 BP 150/80 01/09/19 05:41 Pulse Ox 97 01/09/19 05:41 - Medical History PMH: Anemia, Anxiety, Arthritis (KNEES), Colonic Polyps (2015), COPD, Depression, HTN, Hyperthyroidism, Hypothyroidism (S/P THYROIDECTOMY), Sleep Apnea (NO CPAP OF NOW), TIA (1997; 2002) Denies: Diabetes, Hepatitis, Chronic Kidney Disease, Seizures Surgical History: Endoscopy Denies: Pacemaker - [facility] (01/21/18) (01/21/18) RELEASE PERITONEUM, PERCUTANEOUS ENDOSCOPIC APPROACH (01/21/18) REPAIR STOMACH, PERCUTANEOUS ENDOSCOPIC APPROACH (01/21/18) RESTRICTION OF ESOPHAGOGASTRIC JUNCTION, PERC ENDO APPROACH (01/21/18) ROBOTIC ASSISTED PROCEDURE OF TRUNK, PERC ENDO APPROACH (01/21/18) Family History: States: Unknown Family Hx - Social History Hx Tobacco Use: Yes Hx Alcohol Use: No Hx Substance Use: No - Immunization History Hx Tetanus Toxoid Vaccination: No Hx Influenza Vaccination: No Hx Pneumococcal Vaccination: No Review Of Systems Constitutional: Negative for: Fever, Chills, Weakness ENT: Negative for: Mouth Swelling Cardiovascular: Negative for: Chest Pain, Palpitations Respiratory: Negative for: Cough, Shortness of Breath Gastrointestinal: Positive for: Abdominal Pain. Negative for: Nausea, Vomiting, Diarrhea Musculoskeletal: Negative for: Back Pain Skin: Negative for: Rash, Lesions, Jaundice, Bruising Neurological: Negative for: Weakness, Numbness, Dizziness Physical Exam - Physical Exam Appears: Well, Non-toxic, No Acute Distress, Other (uncomfortable ) Skin: Normal Color, Warm, No Rash Head: Atraumatic, Normacephalic Eye(s): bilateral: Normal Inspection, PERRL, EOMI Ear(s): Bilateral: Normal (no drainage ) Nose: Normal Oral Mucosa: Moist Throat: Normal (no swelling or injection ), No Exudate, Other (airway patent ) Neck: Supple Chest: Symmetrical, No Deformity Respiratory: No Accessory Muscle Use, Other (normal inspiratory effort) Gastrointestinal/Abdominal: Soft, Tenderness (right abdomen ), Guarding, No Rebound Extremity: Normal ROM Extremity: Bilateral: Atraumatic Neurological/Psych: Oriented x3 ED Course And Treatment - Laboratory Results Result Diagrams: 01/09/19 05:59 01/09/19 05:59 Lab Results: Total Bilirubin 0.5 mg/dL (0.2-1.3) 01/09/19 05:59 AST 19 U/L (14-36) 01/09/19 05:59 ALT 8 U/L (9-52) L D 01/09/19 05:59 Alkaline Phosphatase 72 U/L (38-126) 01/09/19 05:59 Total Protein 7.3 g/dL (6.3-8.3) 01/09/19 05:59 Albumin 4.5 g/dL (3.5-5.0) 01/09/19 05:59 Globulin 2.8 gm/dL (2.2-3.9) 01/09/19 05:59 Albumin/Globulin Ratio 1.6 (1.0-2.1) 01/09/19 05:59 Lipase 26 U/L (23-300) 01/09/19 05:59 O2 Sat by Pulse Oximetry: 97 (on RA) Pulse Ox Interpretation: Normal Medical Decision Making Medical Decision Making: Progress: Bloodwork and CTA ordered. Toradol IVP given. Disposition - Disposition Disposition Time: 07:22 Condition: STABLE Forms: [facility] (Welsh) - Clinical Impression Clinical Impression: Abdominal pain - PA / CARDIAC CATHETERIZATION TECHNICIAN / Resident Statement / has reviewed & agrees with the documentation as recorded. - Scribe Statement The provider has reviewed the documentation as recorded by the Scribe (Destinee Smallwood) All medical record entries made by the Scribe were at my direction and personally dictated by me. I have reviewed the chart and agree that the record accurately reflects my personal performance of the history, physical exam, medical decision making, and the department course for this patient. I have also personally directed, reviewed, and agree with the discharge instructions and disposition. Physician Patient Turnover Patient Signed Over To: Breann Goodman (pending CT abd/pel)
[2019-01-09 08:01] LABS: SQUAMOUS EPITHIAL 1 /hpf (0-5); URINE BILIRUBIN NEGATIVE (NEGATIVE); URINE BLOOD NEGATIVE (NEGATIVE); URINE CLARITY Clear (Clear); URINE COLOR Straw (YELLOW); URINE GLUCOSE (UA) NORMAL (Normal); URINE LEUKOCYTE ESTERASE NEG Leu/uL (Negative); URINE PROTEIN NEGATIVE (NEGATIVE); URINE UROBILINOGEN NORMAL mg/dL (0.2-1.0)
[2019-01-09] MEDS ORDERED: metroNIDAZOLE IV 500 mg/100 ml 500 MG/100 ML BAG IV STA (08:14)
[2019-01-09] MEDS ORDERED: metroNIDAZOLE IV 500 mg/100 ml 500 MG/100 ML BAG IV SCH (08:15)
[2019-01-09] MEDS: Ciprofloxacin 400mg/200ml D5W 400 MG/200 ML BAG IV STA ×2 (08:17→08:50)
[2019-01-09] MEDS ORDERED: Ciprofloxacin 400mg/200ml D5W 400 MG/200 ML BAG IVPB ONE (08:18)
[2019-01-09] MEDS ORDERED: metroNIDAZOLE IV 500 mg/100 ml 0 MG/0 ML BAG ONE (08:22)
[2019-01-09 10:12] VITALS: BP 151/91; PULSE 72; RESP 16; O2SAT 97
--- NOTE | 2019-01-09 11:29 | CT ---
Date of service: 01/09/2019 CTA abdomen and pelvis without and with IV contrast Indication: abd pain Comparison: Abdominal ultrasound performed 12/10/18, CT of the abdomen and pelvis without contrast performed 03/01/18 Technique: Contrast dose: 100 mL Visipaque 320 IV Total exam DLP: 1844.64 Axial computed tomographic angiogram images of the abdomen and pelvis were performed before and after bolus administration of nonionic intravenous contrast. Multiplanar, 3D (maximum intensity projection) reconstructions of the aorta were created in the coronal and sagittal planes by the production control technologist. This CT exam was performed using 1 or more of the falling dose reduction techniques: Automated exposure control, adjustment of the MAA and/or kV according to patient size, and/or use of iterative reconstruction technique. Findings: Limited views of the inferior thorax appear unremarkable without visible pleural effusion or pneumothorax. There is normal course and contour of the abdominal aorta and common iliac arteries. The celiac artery origin is widely patent. The superior mesenteric artery origin is widely patent. The inferior mesenteric artery origin is patent. Single renal arteries identified bilaterally, both widely patent. The liver appears within normal limits of size and morphology. Fatty atrophy of the pancreas. 7 mm probable splenule. The spleen appears otherwise unremarkable. Bilateral adrenal gland hypertrophy. The pancreas, spleen, adrenal glands, and gallbladder appear unremarkable. The kidneys enhance symmetrically without evidence of hydronephrosis or obstructing renal calculi. No enlarged abdominal lymphadenopathy is identified. Moderate hiatal hernia. Visualized bowel loops appear within normal limits of caliber without evidence of obstruction. Wall thickening of the sigmoid colon; correlate clinically for possibility of colitis/diverticulitis. The appendix appears normal. No inflammatory changes are seen in the right lower quadrant to suggest acute appendicitis. No definite free air. The urinary bladder appears unremarkable. The uterus is absent consistent with hysterectomy. No significant pelvic free fluid is identified. No acute osseous abnormality is identified. Impression: Wall thickening of the sigmoid colon; correlate clinically for possibility of colitis/diverticulitis. Moderate hiatal hernia. Nodular hypertrophy bilateral adrenal glands. Hysterectomy. Additional findings as above. Preliminary impression was provided by [facility].
== END 2019-01-09 11:00 | disposition home or self-care (01) ==
LOC: C.ER 05:20
DX: K57.30 Diverticulosis of large intestine without perforation or abscess without bleeding (principal); R10.9 Unspecified abdominal pain
CPT/HCPCS: 74175; 80053; 81001; 83690; 85025; 96374; 96375; 99285; J1885; J2270; Q9967

== ENCOUNTER 2019-02-13 06:36 | Day surgery (SDC) | payer MEDICAID ==
[2019-02-12 11:02] VITALS: BMI 39.8
[2019-02-13 07:25] VITALS: RESP 18
--- NOTE | 2019-02-13 08:23 | CP.SDSHP ---
Same Day Surgery H & P - History Proposed Procedure: EGD Pre-Op Diagnosis: SEE NOTES - Previous Medical/Surgical History Cardiac: Hypertension Endocrine/Metabolic: Thyroid Disease Neuro: Other Misc: Other Pain: 6.Severe Pain - Allergies Allergies: Allergies Penicillins Allergy (Intermediate, Verified 01/09/19 05:36) RASH RASH, UNSURE OF TOTAL RECATION HAPPENED A CHILD - Physical Exam General Appearance: N Vital Signs: Vital Signs 02/13/19 07:12 Temperature 97 F L Pulse Rate 79 Respiratory 18 Rate Blood Pressure 149/90 O2 Sat by Pulse 98 Oximetry Mental Status: Alert & Oriented x3 Neuro: WNL Heart: Other Lungs: WNL GI: Other - {Optional Preform as Required} Breast: WNL Abdomen: Other Rectal: Other Integument: WNL : WNL Ortho: Other ENT: WNL - Impression Pt. Evaluated Today:Candidate for Anesthesia & Procedure: Yes - Date & Time Time: 08:23 Short Stay Discharge - Short Stay Discharge Admitting Diagnosis/Reason for Visit: FUNCTIONAL DYSPEPSIA Disposition: HOME/ ROUTINE
[2019-02-13] MEDS ORDERED: Propofol 10 mg/ml Inj (20 ML) ONE (08:49)
[2019-02-13] MEDS ORDERED: Lactated Ringer's 1,000 ML IV ONE (08:55)
[2019-02-13] MEDS ORDERED: Belladonna-Phenobarbital PO STA (09:06)
[2019-02-13] MEDS ORDERED: Pantoprazole 40 mg EC Tab PO ONE (09:10)
[2019-02-13 09:27] VITALS: TEMP 98; O2SAT 99
[2019-02-13 10:05] VITALS: BP 143/69; PULSE 73
== END 2019-02-13 10:05 | disposition home or self-care (01) ==
LOC: C.ENDO 06:36
PROVIDERS: ATTEND Specialist
DX: K31.7 Polyp of stomach and duodenum (principal); K30 Functional dyspepsia; I10 Essential (primary) hypertension; K29.50 Unspecified chronic gastritis without bleeding; Z88.0 Allergy status to penicillin; K44.9 Diaphragmatic hernia without obstruction or gangrene
CPT/HCPCS: 43239; 88305; J2001; J2704; J2765; J7120